=== PATIENT | female | born 1985 | race Caucasian/White ===

== ENCOUNTER 2016-11-08 20:09 | Emergency (ER) | payer OTHER ==
[~2016-11-08] VITALS: Ht 157.5 cm; Wt 59.5 kg
[~2016-11-08 20:09] MED LIST: PRENAT PO; ZOF8 PO
[2016-11-08 20:15] VITALS: Ht 157.5 cm; Wt 59.5 kg
[2016-11-08] MEDS ORDERED: morphine 4 MG/ML VIAL IV STA (21:18)
[2016-11-08] MEDS ORDERED: SOD CHLORIDE 0.9% 1,000 ML IV STA (21:18)
[2016-11-08] MEDS ORDERED: ONDANSETRON 4 MG INJ IV STA (21:18)
--- NOTE | 2016-11-08 21:28 | ERD ---
ER Documentation Chief Complaint Date/Time DATE: 11/08/16 TIME: 21:21 Chief Complaint abd pain x 3 mos; hx of ovarian ca; on remission; port on chest HPI 30-year-old female with a history of ovarian cancer, status post chemo, radiation, oophorectomy 1 year ago, presents the emergency department complaining of abdominal pain and diarrhea times today. Patient states she woke up with the pain and has experienced an intermittent 8 out of 10 periumbilical cramping pain. She denies any alleviating or aggravating factors. She notes associated decreased appetite. Patient denies fever, chills , nausea, vomiting or right lower quadrant pain. She denies recent antibiotic use or travel outside the country. She estimates 20 episodes of watery, non- bloody diarrhea today. Patient has not attempted to treat her symptoms with any medication thus far. Boyfriend accompanied the patient And reported similar symptoms 2 days ago which spontaneously resolved. Patient is not currently on any chemo or radiation therapy. ROS All systems reviewed and are negative except as per history of present illness. Medications Home Meds Active Scripts Electrolyte,Oral (Pedialyte) 1,000 Ml Solution, 100 ML PO Q6 Y for DIARRHEA for 7 Days, ML Prov:ROZ ULLOA PA-C 11/08/16 Acetaminophen* (Tylenol*) 325 Mg Tablet, 650 MG PO Q6H Y for MILD PAIN LEVEL 1- 3 for 7 Days, TAB Prov:ROZ ULLOA PA-C 11/08/16 Ondansetron (Ondansetron Odt) 4 Mg Tab.rapdis, 4 MG PO Q6H Y for NAUSEA AND/OR VOMITING, #20 TAB Prov:ROZ ULLOA PA-C 11/08/16 Ondansetron Hcl* (Zofran* ODT) 8 mg -ODT Tab.disper, 8 MG PO Q6 Y for NAUSEA AND /OR VOMITING, #10 TAB Prov:SACHI SPRINGER DO 01/10/15 Reported Medications Multivit/Min/Fol Ac/Iron/Pren* ( S*) 1 Tab Tab, 1 TAB PO DAILY, TAB 11/05/14 Allergies Allergies: Coded Allergies: No Known Allergy (Verified , 09/19/12) PMhx/Soc History of Surgery: Yes (OVARIAN REMOVED, OVARIAN TUMOR REMOVAL) Anesthesia Reaction: No Hx Neurological Disorder: No Hx Respiratory Disorders: No Hx Cardiac Disorders: No Hx Psychiatric Problems: No Hx Miscellaneous Medical Probl: Yes (OVARIAN CA) Hx Alcohol Use: No Hx Substance Use: No Hx Tobacco Use: No Smoking Status: Never smoker Physical Exam Vitals Vital Signs Date Time Temp Pulse Resp B/P Pulse Ox O2 Delivery O2 Flow Rate FiO2 11/08/16 20:15 98.3 111 18 124/72 98 Physical Exam Const: Well-developed, well-nourished, no acute distress Head: Atraumatic Eyes: Normal Conjunctiva ENT: Normal External Ears, Nose and Mouth. Neck: Full range of motion..~ No meningismus. Resp: Clear to auscultation bilaterally Cardio: Regular rate and rhythm, no murmurs Abd: Soft, mildly tender bryce-umbilical region,, non distended. Normal bowel sounds. Negative McBurney point tenderness, negative Man sign Skin: No petechiae or rashes Back: No midline or flank tenderness Ext: No cyanosis, or edema Neur: Awake and alert Psych: Normal Mood and Affect Result Diagram: 11/08/16213511/08/162135 Results 24 hrs Laboratory Tests Test 11/08/16 21:30 11/08/16 21:36 Urine Color YELLOW Urine Clarity CLEAR Urine pH 6.0 Urine Specific [place] 1.015 Urine Ketones NEGATIVEmg/dL Urine Nitrite NEGATIVEmg/dL Urine Bilirubin NEGATIVEmg/dL Urine Urobilinogen NEGATIVEmg/dL Urine Leukocyte Esterase NEGATIVELeu/ul Urine Microscopic RBC 1/HPF Urine Microscopic WBC 1/HPF Urine Mucus FEW/HPF Urine Hemoglobin 2+mg/dL Urine Glucose NEGATIVEmg/dL Urine Total Protein NEGATIVEmg/dl White Blood Count 9.310^3/ul Red Blood Count 4.6910^6/ul Hemoglobin 14.0g/dl Hematocrit 40.5% Mean Corpuscular Volume 86.4fl Mean Corpuscular Hemoglobin 29.9pg Mean Corpuscular Hemoglobin Concent 34.6g/dl Red Cell Distribution Width 13.1% Platelet Count 57983^3/UL Mean Platelet Volume 10.7fl Neutrophils % 72.8% Lymphocytes % 15.6% Monocytes % 10.4% Eosinophils % 0.4% Basophils % 0.1% Nucleated Red Blood Cells % 0.0/100WBC Neutrophils # 6.810^3/ul Lymphocytes # 1.510^3/ul Monocytes # 1.010^3/ul Eosinophils # 0.010^3/ul Basophils # 0.010^3/ul Nucleated Red Blood Cells # 0.010^3/ul Sodium Level 141mmol/L Potassium Level 3.8mmol/L Chloride Level 104mmol/L Carbon Dioxide Level 24mmol/L Anion Gap 17 Blood Urea Nitrogen 12mg/dl Creatinine 0.62mg/dl Glucose Level 84mg/dl Calcium Level 9.6mg/dl Total Bilirubin 1.2mg/dl Direct Bilirubin 0.00mg/dl Indirect Bilirubin 1.2mg/dl Aspartate Amino Transf (AST/SGOT) 25IU/L Alanine Aminotransferase (ALT/SGPT) 61IU/L Alkaline Phosphatase 73IU/L Total Protein 8.2g/dl Albumin 4.9g/dl Globulin 3.30g/dl Albumin/Globulin Ratio 1.48 Lipase 97U/L Current Medications Medications (Trade) Dose Ordered Sig/Dia Route PRN Reason Start Time Stop Time Status Last Admin Dose Admin Sodium Chloride (NS) 1,000 ml @ 1,000 mls/hr Q1H STAT IV 11/08/16 21:18 11/08/16 22:17 DC 11/08/16 21:42 Morphine Sulfate (morphine) 4 mg ONCE STAT IV 11/08/16 21:18 11/08/16 21:20 DC 11/08/16 21:42 Ondansetron HCl (Zofran Inj) 4 mg ONCE STAT IV 11/08/16 21:18 11/08/16 21:20 DC 11/08/16 21:42 Procedures/MDM This is a 30-year-old female with a history of ovarian cancer currently in remission who presents with a 1 day history of midline. Umbilical abdominal pain which has been intermittent with associated nonbloody diarrhea. Patient's boyfriend reports similar symptoms 2 days ago. Patient denies fever, chills, recent antibiotic use or travel outside the country. Vital signs reviewed. Patient afebrile, normotensive, non-tachycardic and non-hypoxic upon arrival. Patient well-appearing, well-nourished and nontoxic. Physical exam without evidence of discrete abdominal tenderness to palpation, abdominal distention or peritoneal signs. CBC showed no evidence of systemic infection or severe anemia. CMP showed no evidence of electrolyte abnormalities, severe acidosis, alkalosis , renal failure, or liver disease. Lipase showed no evidence of acute pancreatitis. UA showed no evidence of acute infection or hematuria. Urine test was negative. The patient's clinical presentation is very consistent with diarrhea and abdominal pain, likely due to an acute viral syndrome. The patient does not exhibit any clinical signs or symptoms concerning for serious bacterial infection or systemic illness. Based on history and clinical exam findings the patient does not appear to have evidence of acute appendicitis , pancreatitis, cholecystitis, ectopic , ovarian torsion, pneumonia, strep pharyngitis, urinary tract infection, bacteremia, sepsis, or meningitis. Patient received a bolus of fluids as well as pain and nausea medication while in the emergency department and reports improvement of symptoms. At this point I believe it would be appropriate for symptom control, and close outpatient primary care follow-up, however I instructed the patient to return to the emergency department in 8 hours for an abdominal recheck if symptoms continue or worsen. Patient instructed to follow-up with her primary care provider for a follow-up evaluation and repeat cancer screening. Patient agrees with plan. Based on patient's history of present illness and physical examination the decision was made to discharge. The patient was re-evaluated after ED treatment and stabilizing measures, and symptoms have improved. There is no evidence of life threatening injuries or illnesses at this time. On re-examination, patient resting in no distress, stable vital signs, reports feeling better and safe for discharge with outpatient follow up with PMD in 1-2 days. Patient given return precautions. Departure Diagnosis: Primary Impression: Abdominal pain Abdominal location: periumbilical Qualified Code: R10.33 - Periumbilical abdominal pain Additional Impression: Diarrhea Diarrhea type: unspecified type Qualified Code: R19.7 - Diarrhea, unspecified type ROZ ULLOA PA-C Nov 08, 2016 21:28
[2016-11-08 22:08] LABS: ADD SCAN DIFF NO
[2016-11-08 22:10] LABS: BASOPHILS % 0.1 % (0.0-2.0); EOSINOPHILS % 0.4 % (0.0-7.0); HEMATOCRIT 40.5 % (37.0-47.0); LYMPHOCYTES # 1.5 10^3/ul (0.8-2.9); LYMPHOCYTES % 15.6 % (15.0-51.0); MEAN CORPUSCULAR HEMOGLOBIN 29.9 pg (29.0-33.0); MEAN CORPUSCULAR HGB CONC 34.6 g/dl (32.0-37.0); MEAN CORPUSCULAR VOLUME 86.4 fl (82.0-101.0); MEAN PLATELET VOLUME 10.7 fl (7.4-10.4); MONOCYTES % 10.4 % (0.0-11.0); NEUTROPHIL # 6.8 10^3/ul (1.6-7.5); NEUTROPHILS % 72.8 % (39.0-77.0); PLATELET COUNT 192 10^3/UL (140-415); RED BLOOD COUNT 4.69 10^6/ul (4.20-5.40); RED CELL DISTRIBUTION WIDTH 13.1 % (11.5-14.5); WHITE BLOOD COUNT 9.3 10^3/ul (4.8-10.8)
[2016-11-08 22:31] LABS: ALBUMIN 4.9 g/dl (3.3-4.9); ALBUMIN/GLOBULIN RATIO 1.48; BILIRUBIN,INDIRECT 1.2 mg/dl (0-1.1); BILIRUBIN,TOTAL 1.2 mg/dl (0.2-1.3); CALCIUM 9.6 mg/dl (8.4-10.2); CREATININE 0.62 mg/dl (0.44-1.00); POTASSIUM 3.8 mmol/L (3.5-5.1); TOTAL PROTEIN 8.2 g/dl (6.1-8.1)
[2016-11-08 22:33] LABS: ADD UMIC YES; UR ASCORBIC ACID NEGATIVE (NEGATIVE); UR BILIRUBIN (Dip) NEGATIVE (NEGATIVE); UR BLOOD (Dip) 2+ mg/dL (NEGATIVE); UR CLARITY CLEAR (CLEAR); UR COLOR YELLOW (YELLOW); UR GLUCOSE (Dip) NEGATIVE (NEGATIVE); UR KETONES (Dip) NEGATIVE (NEGATIVE); UR LEUKOCYTE ESTERASE (Dip) NEGATIVE Leu/ul (NEGATIVE); UR MUCUS FEW /HPF (NONE SEEN); UR NITRITE (Dip) NEGATIVE (NEGATIVE); UR RBC 1 /HPF (0-5); UR SPECIFIC GRAVITY (Dip) 1.015 (1.003-1.030); UR TOTAL PROTEIN (Dip) NEGATIVE (NEGATIVE); UR UROBILINOGEN (Dip) NEGATIVE (NEGATIVE)
[2016-11-08] MEDS ORDERED: ACET325T33 PO (22:41)
[2016-11-08] MEDS ORDERED: ONDA4TAB14 PO (22:41)
[2016-11-08] MEDS ORDERED: ELEC100080 PO (22:41)
[2016-11-08 23:42] VITALS: BP 107/64; PULSE 80; RESP 18; TEMP 98.8
== END 2016-11-08 23:43 | disposition home or self-care (01) ==
LOC: FTE 20:09
DX: R10.33 Periumbilical pain (principal); R19.7 Diarrhea, unspecified; Z85.43 Personal history of malignant neoplasm of ovary
CPT/HCPCS: 36415; 80053; 81001; 83690; 85025; 96374; 96375; J2270; J2405; J7030; Z7502

== ENCOUNTER 2017-02-21 10:17 | Emergency (ER) | payer OTHER ==
[~2017-02-21] VITALS: Ht 157.5 cm; Wt 59.5 kg
[~2017-02-21 10:17] MED LIST changes: +ACET325T33 PO; +ELEC100080 PO; +ONDA4TAB14 PO
[2017-02-21 10:21] VITALS: Ht 157.5 cm; Wt 59.5 kg
[2017-02-21] MEDS ORDERED: SOD CHLORIDE 0.9% 1,000 ML IV ONE (11:30)
[2017-02-21] MEDS ORDERED: METOCLOPRAMIDE 10 MG INJ IV ONE (11:30)
--- NOTE | 2017-02-21 12:05 | RADRPT ---
PROCEDURE: Obstetrical ultrasound CLINICAL INDICATION: pelvic pain, irregular periods, history of left adnexal mass, history of left oophorectomy TECHNIQUE: Multiple sonographic images of the pelvis were obtained. The images were reviewed on a PACS workstation. COMPARISON: None FINDINGS: The cervix is not well visualized. There is a single viable intrauterine gestation. Cardiac activity is present with 154 beats per minute. There is a breech presentation. The placenta is posterior. There is no evidence for an abruption or placenta previa. There is a subjectively normal amount of amniotic fluid. Measurements were made in order to determine age. The results are as follows (cm): BPD =3.35 HC =11.73 AC =9.87 FL =1.60 Estimated gestational age by ultrasound of approximately 15 weeks, 5 days. The estimated date of delivery by ultrasound is 08/10/2017. EFW = 123 grams The right ovary measures 3.5 x 1.8 x 2.2 cm. No significant ovarian lesions are identified. There is normal vascular flow in the right ovary. Bilateral adnexa are unremarkable. IMPRESSION: Single viable intrauterine gestation of approximately 15 weeks, 5 days . The estimated date of delivery is 08/10/2017 . Breech presentation. The left ovary is not visualized consistent with the reported history. The right ovary and bilateral adnexa are unremarkable. RPTAT: EE Physician Lakesha Date Time Electronically viewed and signed by Physician Lakesha on 02/21/2017 12:05 /
[2017-02-21 12:17] LABS: ADD UMIC YES; UR AMORPHOUS CRYSTAL FEW /HPF (NONE SEEN); UR ASCORBIC ACID 40 mg/dL (NEGATIVE); UR BACTERIA FEW /HPF (NONE SEEN); UR BILIRUBIN (Dip) NEGATIVE (NEGATIVE); UR BLOOD (Dip) NEGATIVE (NEGATIVE); UR CLARITY CLOUDY (CLEAR); UR COLOR YELLOW (YELLOW); UR GLUCOSE (Dip) NEGATIVE (NEGATIVE); UR KETONES (Dip) NEGATIVE (NEGATIVE); UR LEUKOCYTE ESTERASE (Dip) NEGATIVE Leu/ul (NEGATIVE); UR MUCUS FEW /HPF (NONE SEEN); UR NITRITE (Dip) NEGATIVE (NEGATIVE); UR RBC 2 /HPF (0-5); UR SPECIFIC GRAVITY (Dip) 1.016 (1.003-1.030); UR SQUAMOUS EPITHELIAL CELL FEW /HPF (FEW); UR TOTAL PROTEIN (Dip) NEGATIVE (NEGATIVE); UR UROBILINOGEN (Dip) NEGATIVE (NEGATIVE)
[2017-02-21 12:18] LABS: BASOPHILS % 0.1 % (0.0-2.0); EOSINOPHILS # 0.1 10^3/ul (0.0-0.5); EOSINOPHILS % 1.1 % (0.0-7.0); HEMATOCRIT 38.1 % (37.0-47.0); LYMPHOCYTES # 1.9 10^3/ul (0.8-2.9); LYMPHOCYTES % 20.1 % (15.0-51.0); MEAN CORPUSCULAR HEMOGLOBIN 30.3 pg (29.0-33.0); MEAN CORPUSCULAR HGB CONC 34.1 g/dl (32.0-37.0); MEAN CORPUSCULAR VOLUME 88.8 fl (82.0-101.0); MEAN PLATELET VOLUME 11.6 fl (7.4-10.4); MONOCYTE # 0.7 10^3/ul (0.3-0.9); MONOCYTES % 7.3 % (0.0-11.0); NEUTROPHIL # 6.7 10^3/ul (1.6-7.5); PLATELET COUNT 184 10^3/UL (140-415); RED BLOOD COUNT 4.29 10^6/ul (4.20-5.40); RED CELL DISTRIBUTION WIDTH 12.9 % (11.5-14.5); WHITE BLOOD COUNT 9.4 10^3/ul (4.8-10.8)
[2017-02-21 12:26] LABS: ALBUMIN 4.3 g/dl (3.3-4.9); ALBUMIN/GLOBULIN RATIO 1.22; BILIRUBIN,INDIRECT 0.9 mg/dl (0-1.1); BILIRUBIN,TOTAL 0.9 mg/dl (0.2-1.3); CALCIUM 9.5 mg/dl (8.4-10.2); CREATININE 0.53 mg/dl (0.44-1.00); POTASSIUM 3.8 mmol/L (3.5-5.1); TOTAL PROTEIN 7.8 g/dl (6.1-8.1)
[2017-02-21] MEDS ORDERED: METO10TA92 PO (14:40)
[2017-02-21] MEDS ORDERED: ACET500C5 PO (14:40)
[2017-02-21 14:54] VITALS: BP 122/71; PULSE 79; RESP 18; TEMP 98.5
--- NOTE | 2017-02-21 15:01 | ERD ---
ER Documentation Chief Complaint Date/Time DATE: 02/21/17 TIME: 14:53 Chief Complaint pelvic pain x 1 weeks 14 weeks HX cancer HPI Patient is a 31-year-old female with medical history of appendectomy, cholecystectomy, left ovarian tumor status post removal of left ovary dense emergency department for concerns of pelvic pain 1 week. Patient reports a positive at-home test. Patient states she has a history of irregular periods. She states her last period was sometime in July. Patient believes she is approximately 14-15 weeks . Patient reports nausea and vomiting. Patient states she is has 3-4 episodes of nonbloody, nonbilious vomiting per day. Patient denies any fevers, chills, upper abdominal pain. Patient denies any dysuria, frequency or urgency. Patient did she has bilateral pelvic cramping. Patient denies any vaginal bleeding or vaginal discharge. Patient has not seen an [facility] yet. Patient states she is pending a referral to [facility] due to high risk. ROS All systems reviewed and are negative except as per history of present illness. Medications Home Meds Active Scripts Metoclopramide* (Reglan*) 10 Mg Tablet, 10 MG PO Q6 Y for NAUSEA AND/OR VOMITING , #10 TAB Prov:NIMO MURPHY PA-C 02/21/17 Acetaminophen* (Tylophen*) 500 Mg Capsule, 1 CAP PO Q6H Y for PAIN AND OR ELEVATED TEMP, #20 CAP Prov:NIMO MURPHY PA-C 02/21/17 Electrolyte,Oral (Pedialyte) 1,000 Ml Solution, 100 ML PO Q6 Y for DIARRHEA for 7 Days, ML Prov:ROZ ULLOA PA-C 11/08/16 Acetaminophen* (Tylenol*) 325 Mg Tablet, 650 MG PO Q6H Y for MILD PAIN LEVEL 1- 3 for 7 Days, TAB Prov:ROZ ULLOA PA-C 11/08/16 Ondansetron (Ondansetron Odt) 4 Mg Tab.rapdis, 4 MG PO Q6H Y for NAUSEA AND/OR VOMITING, #20 TAB Prov:ROZ ULLOA PA-C 11/08/16 Ondansetron Hcl* (Zofran* ODT) 8 mg -ODT Tab.disper, 8 MG PO Q6 Y for NAUSEA AND /OR VOMITING, #10 TAB Prov:SACHI SPRINGER DO 01/10/15 Reported Medications Multivit/Min/Fol Ac/Iron/Pren* ( S*) 1 Tab Tab, 1 TAB PO DAILY, TAB 11/05/14 Allergies Allergies: Coded Allergies: No Known Allergy (Verified , 09/19/12) PMhx/Soc History of Surgery: Yes (OVARIAN REMOVED, OVARIAN TUMOR REMOVAL) Anesthesia Reaction: No Hx Neurological Disorder: No Hx Respiratory Disorders: No Hx Cardiac Disorders: No Hx Psychiatric Problems: No Hx Miscellaneous Medical Probl: Yes (OVARIAN CA) Hx Alcohol Use: No Hx Substance Use: No Hx Tobacco Use: No Smoking Status: Never smoker FmHx Family History: No diabetes Physical Exam Vitals Vital Signs Date Time Temp Pulse Resp B/P Pulse Ox O2 Delivery O2 Flow Rate FiO2 02/21/17 14:54 98.5 79 18 122/71 99 Room Air 02/21/17 10:21 98.2 100 20 124/65 98 Physical Exam GENERAL: Well-developed, well-nourished female. Appears in no acute distress. HEAD: Normocephalic, atraumatic. EYES: Pupils are equally reactive bilaterally. EOMs grossly intact. No conjunctival erythema. ENT: Moist mucous membranes. No uvula deviation. No kissing tonsils. NECK: Supple. No meningismus. Normal range of motion of the neck. LUNG: Clear to auscultation bilaterally. No rhonchi, wheezing, rales or coarse breath sounds. HEART: Regular rate and rhythm. No murmurs, rubs or gallops. ABDOMEN: Previous vertical surgical incision noted. Soft, and nondistended. Tender to palpation in bilateral lower pelvic regions. Positive bowel sounds in all four quadrants. No rebound tenderness, no guarding. (-) McBurney's point tenderness. No CVA tenderness. BACK: No midline tenderness. EXTREMITIES: Equal pulses bilaterally. No peripheral clubbing, cyanosis or edema. No unilateral leg swelling. NEUROLOGIC: Alert and oriented. Moving all four extremities without any difficulty. Normal speech. Steady gait. SKIN: Normal color. Warm and dry. No rashes or lesions. Result Diagram: 02/21/17 1147 02/21/17 1147 Results 24 hrs Laboratory Tests Test 02/21/17 11:47 White Blood Count 9.410^3/ul Red Blood Count 4.2910^6/ul Hemoglobin 13.0g/dl Hematocrit 38.1% Mean Corpuscular Volume 88.8fl Mean Corpuscular Hemoglobin 30.3pg Mean Corpuscular Hemoglobin Concent 34.1g/dl Red Cell Distribution Width 12.9% Platelet Count 35461^3/UL Mean Platelet Volume 11.6fl Neutrophils % 71.0% Lymphocytes % 20.1% Monocytes % 7.3% Eosinophils % 1.1% Basophils % 0.1% Nucleated Red Blood Cells % 0.0/100WBC Neutrophils # 6.710^3/ul Lymphocytes # 1.910^3/ul Monocytes # 0.710^3/ul Eosinophils # 0.110^3/ul Basophils # 0.010^3/ul Nucleated Red Blood Cells # 0.010^3/ul Urine Color YELLOW Urine Clarity CLOUDY Urine pH 8.0 Urine Specific [place] 1.016 Urine Ketones NEGATIVEmg/dL Urine Nitrite NEGATIVEmg/dL Urine Bilirubin NEGATIVEmg/dL Urine Urobilinogen NEGATIVEmg/dL Urine Leukocyte Esterase NEGATIVELeu/ul Urine Microscopic RBC 2/HPF Urine Microscopic WBC 3/HPF Urine Squamous Epithelial Cells FEW/HPF Urine Amorphous Crystals FEW/HPF Urine Bacteria FEW/HPF Urine Mucus FEW/HPF Urine Yeast (Budding) /HPF Urine Hemoglobin NEGATIVEmg/dL Urine Glucose NEGATIVEmg/dL Urine Total Protein NEGATIVEmg/dl Sodium Level 137mmol/L Potassium Level 3.8mmol/L Chloride Level 103mmol/L Carbon Dioxide Level 23mmol/L Anion Gap 15 Blood Urea Nitrogen 5mg/dl Creatinine 0.53mg/dl Glucose Level 95mg/dl Calcium Level 9.5mg/dl Total Bilirubin 0.9mg/dl Direct Bilirubin 0.00mg/dl Indirect Bilirubin 0.9mg/dl Aspartate Amino Transf (AST/SGOT) 20IU/L Alanine Aminotransferase (ALT/SGPT) 49IU/L Alkaline Phosphatase 48IU/L Total Protein 7.8g/dl Albumin 4.3g/dl Globulin 3.50g/dl Albumin/Globulin Ratio 1.22 Beta HCG, Quantitative 76606.0mIU/ml Current Medications Medications (Trade) Dose Ordered Sig/Dia Route PRN Reason Start Time Stop Time Status Last Admin Dose Admin Sodium Chloride (NS) 1,000 ml @ 1,000 mls/hr Q1H ONCE IV 02/21/17 11:30 02/21/17 12:29 DC 02/21/17 11:40 Metoclopramide HCl (Reglan) 5 mg ONCE ONCE IV 02/21/17 11:30 02/21/17 11:31 DC 02/21/17 11:39 Procedures/MDM ED COURSE: The patient was stable throughout ED course. I kept the patient and/or family informed of laboratory and diagnostic imaging results throughout the ED course. DIAGNOSTIC IMAGING: Read by radiologist. DIAGNOSTIC IMAGING REPORT Patient: JESSE FOSS : 1985 Age: 31 Sex: F MR #: [id number] DOS: 02/21/17 1129 Ordering MD: NIMO MURPHY PA-C Location: [facility] Room/Bed: PROCEDURE: Obstetrical ultrasound CLINICAL INDICATION: pelvic pain, irregular periods, history of left adnexal mass, history of left oophorectomy TECHNIQUE: Multiple sonographic images of the pelvis were obtained. The images were reviewed on a PACS workstation. COMPARISON: None FINDINGS: The cervix is not well visualized. There is a single viable intrauterine gestation. Cardiac activity is present with 154 beats per minute. There is a breech presentation. The placenta is posterior. There is no evidence for an abruption or placenta previa. There is a subjectively normal amount of amniotic fluid. Measurements were made in order to determine age. The results are as follows (cm): BPD = 3.35 HC = 11.73 AC = 9.87 FL = 1.60 Estimated gestational age by ultrasound of approximately 15 weeks, 5 days. The estimated date of delivery by ultrasound is 08/10/2017. EFW = 123 grams The right ovary measures 3.5 x 1.8 x 2.2 cm. No significant ovarian lesions are identified. There is normal vascular flow in the right ovary. Bilateral adnexa are unremarkable. IMPRESSION: Single viable intrauterine gestation of approximately 15 weeks, 5 days . The estimated date of delivery is 08/10/2017 . Breech presentation. The left ovary is not visualized consistent with the reported history. The right ovary and bilateral adnexa are unremarkable. RPTAT: EE Physician Lakesha Date Time Electronically viewed and signed by Magan Woody Physician on 02/21/2017 12:05 RA/ CC: NIMO MURPHY PA-C PROCEDURES: None. MEDICATIONS GIVEN: IV fluids, Reglan Patient tolerated medication well with no adverse reactions. MEDICAL DECISION MAKING: This is a 31-year-old female presents to the ED with concerns of pelvic pain. Patient does not recall her last menstrual period. Patient has a history of irregular periods secondary to left ovary removal. Vital signs were reviewed. Patient was afebrile. Patient was hemodynamically stable. Urine test was positive. Quantitative b-HCG was 95624. Patient was A+, no Rhogam was given. CBC showed no evidence of systemic infection or severe anemia. Pelvic US showed Single viable intrauterine gestation of approximately 15 weeks , 5 days . The estimated date of delivery is 08/10/2017. Breech presentation. The left ovary is not visualized consistent with the reported history. The right ovary and bilateral adnexa are unremarkable. Given these findings, the patient's presentation is most consistent with pelvic pain and vomiting secondary to . I have a much lower clinical concern for pancreatitis, ectopic , ruptured ectopic , ovarian mass, molar , subchorionic hematoma, spontaneous , placental abruption, placental previa, vasa previa, uterine rupture, anembyronic . PRESCRIPTIONS: Tylenol, Reglan DISCHARGE: At this time, patient is stable for discharge and outpatient management. Patient was given a copy of all imaging studies obtained today.. I have instructed the patient to follow-up with her OBGYN in 1-2 days for further monitoring including a repeat b-HCG level. I have instructed the patient to promptly return to the ER at any time for any new or worsening symptoms including increased pain, nausea, vomiting, continued bleeding, weakness, syncope or fever. The patient and/or family expressed understanding of and agreement with this plan. All questions were answered. Home care instructions were provided. Disclaimer: Inadvertent spelling and grammatical errors are likely due to EHR/ dictation software use and do not reflect on the overall quality of patient care. Also, please note that the electronic time recorded on this note does not necessarily reflect the actual time of the patient encounter. Departure Diagnosis: Primary Impression: Nausea/vomiting in Additional Impression: Pelvic pain complicating Trimester: unspecified trimester Qualified Code: O26.899 - Pelvic pain affecting , antepartum Condition: Stable Patient Instructions: Pelvic Pain In : Unclear (2-3 Trimester) Referrals: COMMUNITY CLINICS YOU HAVE RECEIVED A MEDICAL SCREENING EXAM AND THE RESULTS INDICATE THAT YOU DO NOT HAVE A CONDITION THAT REQUIRES URGENT TREATMENT IN THE EMERGENCY DEPARTMENT. FURTHER EVALUATION AND TREATMENT OF YOUR CONDITION CAN WAIT UNTIL YOU ARE SEEN IN YOUR DOCTORS OFFICE WITHIN THE NEXT 1-2 DAYS. IT IS YOUR RESPONSIBILITY TO MAKE AN APPOINTMENT FOR FOLOW-UP CARE. IF YOU HAVE A PRIMARY DOCTOR --you should call your primary doctor and schedule an appointment IF YOU DO NOT HAVE A PRIMARY DOCTOR YOU CAN CALL OUR PHYSICIAN REFERRAL HOTLINE AT IF YOU CAN NOT AFFORD TO SEE A PHYSICIAN YOU CAN CHOSE FROM THE FOLLOWING [facility] [address] [facility] [address] [facility] [address] [facility] [address] [facility] [address] [facility] [facility]. [address] [facility] [facility] YOU HAVE RECEIVED A MEDICAL SCREENING EXAM AND THE RESULTS INDICATE THAT YOU DO NOT HAVE A CONDITION THAT REQUIRES URGENT TREATMENT IN THE EMERGENCY DEPARTMENT. FURTHER EVALUATION AND TREATMENT OF YOUR CONDITION CAN WAIT UNTIL YOU ARE SEEN IN YOUR DOCTORS OFFICE WITHIN THE NEXT 1-2 DAYS. IT IS YOUR RESPONSIBILITY TO MAKE AN APPOINTMENT FOR FOLOW-UP CARE. IF YOU HAVE A PRIMARY DOCTOR --you should call your primary doctor and schedule and appointment IF YOU DO NOT HAVE A PRIMARY DOCTOR YOU CAN CALL OUR PHYSICIAN REFERRAL HOTLINE AT . IF YOU CAN NOT AFFORD TO SEE A PHYSICIAN YOU CAN CHOSE FROM THE FOLLOWING [facility] INSTITUTIONS: [facility] [address] [place] [address] [facility] [address] [place] [address] [facility] [address] [place] [address] [facility] [place] [address] [facility] [address] [place] [address] OFFICE FAX , [facility] [address] [place] [address] [address] BRIONES, [place] [address] [place] [address] [address] GOLDBERG, [facility] [address] [facility], [address], [facility] [address] [address]AVIER, [facility] [address] [place] [address] [facility] [address] [place] [address] [address] [facility] [id number] - NANCY LYNCH [address] [facility]. [address], [facility] [address] [address] OTTO, [place] [address] [facility]. [address], [facility] [address] [address] GEIGER, [facility] [address] [place], [place] [id number] Additional Instructions: Call your primary care doctor/OBGYN TOMORROW for an appointment during the next 1-2 days.See the doctor sooner or return here if your condition worsens before your appointment time. NIMO MURPHY PA-C Feb 21, 2017 15:01
== END 2017-02-21 14:55 | disposition home or self-care (01) ==
LOC: FTE 10:17
DX: O21.9 Vomiting of pregnancy, unspecified (principal); R10.2 Pelvic and perineal pain; Z3A.15 15 weeks gestation of pregnancy; Z85.43 Personal history of malignant neoplasm of ovary
CPT/HCPCS: 36415; 76805; 80053; 81001; 84702; 85025; 86900; 86901; 96374; J2765; J7030; Z7502

== ENCOUNTER 2017-03-20 18:36 | Emergency (ER) | payer OTHER ==
[~2017-03-20] VITALS: Ht 157.5 cm; Wt 65.0 kg
[~2017-03-20 18:36] MED LIST changes: +ACET500C5 PO; +METO10TA92 PO
[2017-03-20 19:00] VITALS: Ht 157.5 cm; Wt 65.0 kg
[2017-03-20] MEDS ORDERED: ONDANSETRON 4 MG INJ IV STA (21:48)
[2017-03-20] MEDS ORDERED: SOD CHLORIDE 0.9% 1,000 ML IV STA (21:48)
[2017-03-20] MEDS ORDERED: ACETAMINOPHEN 325 MG TAB PO STA (21:48)
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
--- NOTE | 2017-03-20 22:32 | RADRPT ---
PROCEDURE: US OB AND ULTRASOUND CERVIX. CLINICAL INDICATION: Size and dates , pelvic pain TECHNIQUE: Multiple sonographic images of the pelvis and gravid uterus were obtained. The images were reviewed on a PACS workstation. Transvaginal images of the cervix were also obtained. COMPARISON: US 02/21/2017 FINDINGS: The cervix has a length of 3.6 cm. There is a single viable intrauterine gestation. Cardiac activity is present with 148 beats per min [place]. There is a variable presentation. The placenta is posterior. There is no evidence for an abruption. There is complete placenta previa. There is a normal amount of amniotic fluid with a MVP = 4.9 cm. Measurements were made in order to determine age. The results are as follows: BPD =4.7 cm HC =17.2 cm AC =14.9 cm FL =2.9 cm Estimated gestational age of approximately 19 weeks and 5 days based on ultrasound measurements. . The estimated date of delivery is 08/09/2017, based on ultrasound measurements. The EFW = 302 g% The right ovary is normal and measures 3.4 x 2.0 cm. The left ovary has been removed. RPTAT: AA IMPRESSION: Single viable intrauterine gestation of approximately 19 weeks and 5 days based on ultrasound sandra urements. Posterior placenta with complete previa. .Scar Anderson MD, Date Time Electronically viewed and signed by .Scar Anderson MD, on 03/20/2017 22:32 .S/
[2017-03-20] MEDS ORDERED: CEPH-443 PO (23:59)
[2017-03-21 01:38] VITALS: BP 101/59; PULSE 96; RESP 22; TEMP 98.2
== END 2017-03-21 00:30 | disposition home or self-care (01) ==
LOC: FTE 18:36
DX: O23.12 Infections of bladder in pregnancy, second trimester (principal); R10.2 Pelvic and perineal pain; Z3A.19 19 weeks gestation of pregnancy; Z85.43 Personal history of malignant neoplasm of ovary
CPT/HCPCS: 36415; 76805; 81001; 84702; 85025; 96374; J2405; J7030; Z7502; Z7610

== ENCOUNTER 2017-04-04 12:28 | Inpatient (IN) | payer OTHER ==
[~2017-04-04] VITALS: Ht 157.5 cm; Wt 56.4 kg
[~2017-04-04 12:28] MED LIST changes: +CEPH-443 PO
[2017-04-04 12:40] VITALS: BP 116/64; PULSE 120; RESP 19; Ht 157.5 cm; Wt 56.4 kg
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
[2017-04-04 15:08] LABS: ADD UMIC YES; UR ASCORBIC ACID NEGATIVE (NEGATIVE); UR BACTERIA FEW /HPF (NONE SEEN); UR BILIRUBIN (Dip) NEGATIVE (NEGATIVE); UR BLOOD (Dip) 3+ mg/dL (NEGATIVE); UR CLARITY SLIGHTLY CLOUDY (CLEAR); UR COLOR YELLOW (YELLOW); UR GLUCOSE (Dip) NEGATIVE (NEGATIVE); UR KETONES (Dip) 1+ mg/dL (NEGATIVE); UR LEUKOCYTE ESTERASE (Dip) 2+ Leu/ul (NEGATIVE); UR MUCUS MANY /HPF (NONE SEEN); UR NITRITE (Dip) POSITIVE (NEGATIVE); UR RBC > 182 /HPF (0-5); UR SPECIFIC GRAVITY (Dip) 1.017 (1.003-1.030); UR SQUAMOUS EPITHELIAL CELL FEW /HPF (FEW); UR TOTAL PROTEIN (Dip) 2+ mg/dl (NEGATIVE); UR UROBILINOGEN (Dip) 2+ mg/dL (NEGATIVE)
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
[2017-04-04] MEDS ORDERED: CEFTRIAXONE 2 GM/50 ML (PMX) 50 ML IVPB ONE (16:30)
[2017-04-04] MEDS ORDERED: ACETAMINOPHEN 325 MG TAB PO PRN (16:30)
[2017-04-04 17:19] LABS: BASOPHILS % 0.2 % (0.0-2.0); EOSINOPHILS # 0.1 10^3/ul (0.0-0.5); EOSINOPHILS % 0.5 % (0.0-7.0); HEMATOCRIT 33.1 % (37.0-47.0); HEMOGLOBIN 11.6 g/dl (12.0-16.0); LYMPHOCYTES # 1.7 10^3/ul (0.8-2.9); LYMPHOCYTES % 15.3 % (15.0-51.0); MEAN CORPUSCULAR HEMOGLOBIN 31.5 pg (29.0-33.0); MEAN CORPUSCULAR VOLUME 89.9 fl (82.0-101.0); MEAN PLATELET VOLUME 12.1 fl (7.4-10.4); MONOCYTE # 0.9 10^3/ul (0.3-0.9); MONOCYTES % 7.7 % (0.0-11.0); NEUTROPHIL # 8.5 10^3/ul (1.6-7.5); NEUTROPHILS % 75.5 % (39.0-77.0); PLATELET COUNT 180 10^3/UL (140-415); RED BLOOD COUNT 3.68 10^6/ul (4.20-5.40); RED CELL DISTRIBUTION WIDTH 13.2 % (11.5-14.5); WHITE BLOOD COUNT 11.3 10^3/ul (4.8-10.8)
[2017-04-04] MEDS: SOD CHLORIDE 0.9% 1,000 ML IV SCH (17:36)
[2017-04-04] MEDS: CEFTRIAXONE 2 GM/50 ML (PMX) 50 ML IVPB SCH (18:09)
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
[2017-04-05] MEDS ORDERED: CEFTRIAXONE 1 GM/50 ML (PMX) 50 ML IV SCH
[2017-04-05] MEDS: SOD CHLORIDE 0.9% 1,000 ML IV SCH ×3 (01:34→17:26)
[2017-04-05] MEDS: AL HYDROX/MG HYDROX/SIMETH 30 ML CUP PO PRN ×2 (08:36→16:15)
[2017-04-05] MEDS: CEFTRIAXONE 2 GM/50 ML (PMX) 50 ML IVPB SCH (17:26)
[2017-04-06] MEDS: SOD CHLORIDE 0.9% 1,000 ML IV SCH ×4 (01:15→17:29)
--- NOTE | 2017-04-06 09:09 | QN ---
Documentation Comment HD#3 is stable afebrile No complaints Pyelonephriris VS stable Gen nAD Abd soft nT No CVA tenderness, --->follow up urine culture. --->possible discharge tomorrow on PO antibiotics CRIS WATKINS M.D. Apr 06, 2017 09:09
[2017-04-06 13:21] LABS: RUBELLA ANTIBODY - IGG 0.92 index
[2017-04-06] MEDS: CEFTRIAXONE 2 GM/50 ML (PMX) 50 ML IVPB SCH (17:29)
[2017-04-07] MEDS: SOD CHLORIDE 0.9% 1,000 ML IV SCH (01:40)
--- NOTE | 2017-04-07 10:03 | PN ---
Date/Time of Note Date/Time of Note DATE: 04/07/17 TIME: 10:00 OB Subjective Subjective Subjective Patient denies backpain, fever/chills. Requesting to go home. OB Objective Objective Objective Gen: NAD Abd: gravid NT OB Assessment/Plan Reason for admission: other Other Assessment: 31 y/o at 21 weeks admitted for pyelonephritis. h/o ovaria CA, complete previa, PTD, didelphic uterus -urine culture C&S results reviewed -discharge home with antibiotics x2 weeks, consider suppression antibiotics -f/u with primary OB as scheduled on 04/09 at [facility] BERRY AVELAR Apr 07, 2017 10:03
--- NOTE | 2017-04-07 10:04 | DS ---
Date/Time of Note Date/Time of Note DATE: 04/07/17 TIME: 10:03 Obstetrical Discharge Record Final Diagnosis Final Diagnosis: not delivered Other Final Diagnosis pyelonephritis at 21 weeks GA Condition on Discharge Physical Assessment Last Vitals: See PN Patient Condition: BERRY Porras Apr 07, 2017 10:04
== END 2017-04-07 11:38 | disposition home or self-care (01) | DRG 781 ==
LOC: OBT 12:28 → L-D 12:31 → OBG 15:48 → OBT 15:48
PROVIDERS: ADMIT Obstetrics & Gynecology Obstetrics; ATTEND Obstetrics & Gynecology Obstetrics
DX: O23.02 Infections of kidney in pregnancy, second trimester (principal); Z85.43 Personal history of malignant neoplasm of ovary; Z92.21 Personal history of antineoplastic chemotherapy; Z3A.21 21 weeks gestation of pregnancy
CPT/HCPCS: 76815; 76817; 81001; 85025; 86592; 86703; 86762; 86900; 86901; 87086; 87340; G0463; J7030

== ENCOUNTER 2017-06-18 06:41 | Inpatient (IN) | END 2017-06-24 17:00 | disposition home or self-care (01) | DRG 766 ==